=== PATIENT | male | born 1965 | race Caucasian/White ===

== ENCOUNTER 2016-07-27 18:07 | Emergency (ER) | payer BC ==
--- NOTE | 2016-07-27 18:29 | ED ---
Recheck HPI - General Source: patient, RN notes reviewed Mode of arrival: wheelchair Limitations: physical limitation <Moshe Sandhu - Last Filed: 07/27/16 18:27> <Aron Anderson - Last Filed: 07/27/16 20:42> - General Chief Complaint: Recheck/Abnormal Lab/Rx Stated Complaint: RT LEG SWELLING, CALF PAIN, R/O BLOODCLOT Time Seen by Provider: 07/27/16 18:24 - History of Present Illness Initial Comments: 50-year-old male presents emergency Department chief complaint of right leg pain , swelling. 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 Patient states first one started after having knee surgery. Patient states he last few days that he's had increased swelling and now developed pain in his calf. He states that it does feel similar to his previous DVTs. Patient states that he is currently taking multiple nose insurance: Covers it once daily instead of twice daily. He states that he has doubled up on it last couple days states has not helped. Patient denies chest pain, shortness breath. Patient denies any trauma, fever, chills or any paresthesias. (Moshe Sandhu) - Related Data Home Medications Medication Instructions Recorded Confirmed Lisinopril [Zestril] 10 mg PO DAILY 07/27/16 07/27/16 Rivaroxaban [Xarelto] 20 mg PO HS 07/27/16 07/27/16 Previous Rx's Medication Instructions Recorded Hydrocodone/Acetaminophen [Tilden 1 - 2 each PO Q4HR PRN #20 tab 07/27/16 5-325] Allergies Allergy/AdvReac Type Severity Reaction Status Date / Time No Known Allergies Allergy Verified 07/27/16 19:13 Review of Systems ROS Other: All systems not noted in ROS Statement are negative. <Moshe Sandhu - Last Filed: 07/27/16 18:27> ROS Other: All systems not noted in ROS Statement are negative. <Aron Anderson - Last Filed: 07/27/16 20:42> ROS Statement: Those systems with pertinent positive or pertinent negative responses have been documented in the HPI. Past Medical History Past Medical History: Hypertension Additional Past Medical History / Comment(s): DVT History of Any Multi-Drug Resistant Organisms: None Reported Past Surgical History: Hernia Repair Past Psychological History: No Psychological Hx Reported Smoking Status: Former smoker Past Alcohol Use History: Occasional Past Drug Use History: None Reported <ShawnaMoshe jimenez - Last Filed: 07/27/16 18:27> General Exam Limitations: physical limitation General appearance: alert, in no apparent distress Respiratory exam: Present: normal lung sounds bilaterally. Absent: respiratory distress, wheezes, rales, rhonchi, stridor Cardiovascular Exam: Present: regular rate, normal rhythm, normal heart sounds. Absent: systolic murmur, diastolic murmur, rubs, gallop, clicks Extremities exam: Present: other (Right leg there is noticeable edema noted, pedal pulses equal bilaterally +2, there is moderate tenderness with palpation to the calf no groin tenderness) Neurological exam: Present: alert, oriented X3, CN II-XII intact Skin exam: Present: warm, dry <PhoebeMoshe Venus - Last Filed: 07/27/16 18:27> Medical Decision Making <Moshe Sandhu - Last Filed: 07/27/16 18:27> <Aron Anderson - Last Filed: 07/27/16 20:42> - Medical Decision Making The patient was seen and examined. All diagnostics were reviewed. The patient had a ultrasound done of his right lower extremity. This did not show any evidence of DVT but it does show evidence of a 1.66.3 cm area in the medial left leg which is hypoechoic and consistent with a hematoma. The patient has no signs of an abscess. There is been no fever and there is no redness to the area. He has been taking Xaralto BID for the last couple of days. He is instructed to only take this medication once a day as this could be contributing to increased blood thinning and worsening of the hematoma. He does have some compression stockings and is instructed to continue with these. He has crutches at home. He states that he has significant pain with any attempts at ambulation and he is given Dilaudid 1 mg IM in the ER and will be prescribed pain medications. He has seen orthopedics in the past. It is felt as though orthopedics would not drain this hematoma but it be worthwhile to follow-up for their opinion. He understands and agrees with this plan and leaves in no distress. (Aron Adnerson) Disposition <PhoebeMoshe Venus - Last Filed: 07/27/16 18:27> Time of Disposition: 20:41 <Aron Anderson - Last Filed: 07/27/16 20:42> Clinical Impression: Hematoma, Leg pain, Leg swelling Disposition: HOME SELF-CARE Condition: Good Instructions: Hematoma (ED) Prescriptions: Hydrocodone/Acetaminophen [Tilden 5-325] 1 - 2 each PO Q4HR PRN #20 tab PRN Reason: Pain Referrals: Dashawn Perez MD [Primary Care Provider] - 07/29/16 Torres Torres DO [Doctor of Osteopathic Medicine] - 07/29/16
--- NOTE | 2016-07-27 20:20 | US ---
EXAMINATION TYPE: US venous doppler duplex LE RT DATE OF EXAM: 07/27/2016 7:34 PM COMPARISON: NONE CLINICAL HISTORY: Pain, calf swelling, hx of DVT. SIDE PERFORMED: Right TECHNIQUE: The lower extremity deep venous system is examined utilizing real time linear array sonog karen with graded compression, doppler sonography and color-flow sonography. VESSELS IMAGED: External Iliac Vein (EIV) Common Femoral Vein Deep Femoral Vein Greater Saphenous Vein * Femoral Vein Popliteal Vein Small Saphenous Vein * Proximal Calf Veins (* superficial vessels) Right Leg: Negative for DVT Hypoechoic area in right medial anterior calf. IMPRESSION: No deep venous thrombosis evident within the deep veins of the right lower extremity. At the level of the medial leg hypoechoic area is present measuring 1.6 x 6.3 cm. This may represent hem atoma, correlate to exclude abscess.
[2016-07-27] MEDS ORDERED: HYDROmorphone 1 MG/ML 1 ML SYRINGE IM STA (20:38)
[2016-07-27 21:02] VITALS: BP 124/57; PULSE 64; RESP 18; TEMP 97.3
== END 2016-07-27 21:02 | disposition home or self-care (01) ==
LOC: EC 18:07
DX: S80.11XA Contusion of right lower leg, initial encounter (principal); I10 Essential (primary) hypertension; Z87.891 Personal history of nicotine dependence; Z79.01 Long term (current) use of anticoagulants; Z79.899 Other long term (current) drug therapy; Z86.718 Personal history of other venous thrombosis and embolism; X58.XXXA Exposure to other specified factors, initial encounter
CPT/HCPCS: 93971; 99283; 96372; J1170

== ENCOUNTER → 2016-09-04 | Day surgery (SDC) | payer BC ==
[2016-09-02 09:52] VITALS: BMI 32.5
[~2016-09-04] MED LIST: LACTATED RINGERS 1,000 ML IV ONE; LACTATED RINGERS 1,000 ML IV SCH; LIDOCAINE 1% INJ 10MG/ML (20 ML MDV) ONE; PROPOFOL 10 MG/ML 20 ML VIAL IV ONE
[2016-09-04 07:07] VITALS: TEMP 97.1
--- NOTE | 2016-09-04 07:58 | P.GSHP ---
History of Present Illness H&P Date: 09/04/16 Chief Complaint: Screening colonoscopy Is a 50-year-old male referred from Dr. Perez. Patient rents today for screening colonoscopy. He denies a significant GI complaints. - Constitutional Constitutional: Reports as per HPI Past Medical History Past Medical History: Deep Vein Thrombosis (DVT), Hypertension Additional Past Medical History / Comment(s): DVT 2-3 times-1st time after knee surg., recent cold sx. History of Any Multi-Drug Resistant Organisms: None Reported Past Surgical History: Hernia Repair, Orthopedic Surgery Additional Past Surgical History / Comment(s): reconstructive right knee surg. Past Anesthesia/Blood Transfusion Reactions: No Reported Reaction Past Psychological History: No Psychological Hx Reported Smoking Status: Former smoker Past Alcohol Use History: Occasional Additional Past Alcohol Use History / Comment(s): quit smoking 25 yrs. ago, smoked 1ppd for 10 yrs. Past Drug Use History: None Reported - Past Family History Father Family Medical History: Cancer Medications and Allergies Home Medications Medication Instructions Recorded Confirmed Type Lisinopril [Zestril] 10 mg PO 2030 07/27/16 09/04/16 History Rivaroxaban [Xarelto] 20 mg PO 07/27/16 09/04/16 History Allergies Allergy/AdvReac Type Severity Reaction Status Date / Time No Known Allergies Allergy Verified 09/04/16 07:02 Surgical - Exam Vital Signs Temp Pulse Resp BP Pulse Ox 97.1 F L 87 18 125/76 95 09/04/16 07:06 09/04/16 07:06 09/04/16 07:06 09/04/16 07:06 09/04/16 07:06 - General well developed, no distress - Eyes PERRL - ENT normal pinna - Neck no masses - Respiratory normal expansion - Cardiovascular Rhythm: regular - Abdomen Abdomen: soft, non tender Assessment and Plan Plan: We'll perform screening colonoscopy.
--- NOTE | 2016-09-04 08:18 | P.OP ---
Date of Procedure: 09/04/16 Preoperative Diagnosis: Screening colonoscopy Postoperative Diagnosis: Transverse colon polyp Procedure(s) Performed: Colonoscopy Implants: Anesthesia: MAC Surgeon: Wilmer Hartley Pathology: other (Transverse colon polyp) Condition: stable Disposition: PACU Indications for Procedure: Operative Findings: Description of Procedure: Patient's placed on the endoscopy table in the lateral position. He received IV sedation. Digital rectal exam was performed which revealed a few external hemorrhoids. The flexible colonoscope was then placed patient anus and passed throughout the entire colon. The ileocecal valve was visualized. The cecum, ascending and transverse colonAppeared normal. In the proximal transverse colon there was a small pedunculated polyp and this was removed with snare. Scope was then brought back the descending and sigmoid colon and this appeared normal. Scope was withdrawn for patient.
[2016-09-04 09:06] VITALS: BP 124/84; PULSE 61; RESP 18
== END | disposition home or self-care (01) ==
LOC: ORWHC2ENDO 06:52
PROVIDERS: ATTEND Surgery
DX: Z12.11 Encounter for screening for malignant neoplasm of colon (principal); K64.4 Residual hemorrhoidal skin tags; I10 Essential (primary) hypertension; Z86.718 Personal history of other venous thrombosis and embolism; Z79.01 Long term (current) use of anticoagulants; Z87.891 Personal history of nicotine dependence
CPT/HCPCS: 88305; 45385; J2001; J2704

== ENCOUNTER 2018-08-29 14:39 | Emergency (ER) | payer BC, OTHER ==
[2018-08-29 14:43] VITALS: RESP 16; TEMP 98.2
--- NOTE | 2018-08-29 15:04 | ED ---
Lower Extremity Injury HPI - General Chief Complaint: Extremity Injury, Lower Stated Complaint: Leg pain Source: patient Mode of arrival: wheelchair Limitations: physical limitation - History of Present Illness Initial Comments: 52-year-old male presenting today for chief complaint left ankle and knee pain. Patient states he had severe sunburn after spending a day and diagnosed. She states that the pain is okay while walking but when he stops he feels it in the ankle and the knee. He states is in the area of the burn. She denies it being mostly posterior. Patient states his redness along the medial aspect of the leg from mid thigh to ankle. He states this is what he was exposed to sun. Patient denies fever chills or night sweats. Patient states he is usually on throughout though as he has had a right lower extremity DVT in the past. He states he has not been taking his are also for the past week. Patient was concerned about blood clot. Patient denies any chest pain or shortness of breath. Denies edema of the left LE. Remaining review of systems negative, upon arrival pt appears well, no acute distress, able to weight bear. - Related Data Home Medications Medication Instructions Recorded Confirmed Lisinopril [Zestril] 10 mg PO 2030 07/27/16 09/04/16 Rivaroxaban [Xarelto] 20 mg PO HS 07/27/16 09/04/16 Previous Rx's Medication Instructions Recorded Cephalexin [Keflex] 500 mg PO Q12HR 5 Days #10 cap 08/29/18 Allergies Allergy/AdvReac Type Severity Reaction Status Date / Time No Known Allergies Allergy Verified 08/29/18 14:42 Review of Systems ROS Statement: Those systems with pertinent positive or pertinent negative responses have been documented in the HPI. ROS Other: All systems not noted in ROS Statement are negative. Past Medical History Past Medical History: Deep Vein Thrombosis (DVT), Hypertension Additional Past Medical History / Comment(s): DVT 2-3 times-1st time after knee surg History of Any Multi-Drug Resistant Organisms: None Reported Past Surgical History: Hernia Repair, Orthopedic Surgery Additional Past Surgical History / Comment(s): reconstructive right knee surg. Past Anesthesia/Blood Transfusion Reactions: No Reported Reaction Past Psychological History: No Psychological Hx Reported Smoking Status: Former smoker Past Alcohol Use History: Occasional Past Drug Use History: None Reported - Past Family History Father Family Medical History: Cancer General Exam - General Exam Comments Initial Comments: General: The patient is awake and alert, in no distress, and does not appear acutely ill. Eye: Pupils are equal, round and reactive to light, extra-ocular movements are intact. No nystagmus. There is normal conjunctiva bilaterally. No signs of icterus. Ears, nose, mouth and throat: There are moist mucous membranes and no oral lesions. Neck: The neck is supple, there is no tenderness or JVD. Cardiovascular: There is a regular rate and rhythm. No murmur, rub or gallop is appreciated. Respiratory: Lungs are clear to auscultation, respirations are non-labored, breath sounds are equal. No wheezes, stridor, rales, or rhonchi. Gastrointestinal: [Soft, non-distended, non-tender abdomen without masses or organomegaly noted. There is no rebound or guarding present. No CVA tenderness. Bowel sounds are unremarkable.] Musculoskeletal: Normal ROM, no tenderness. Strength 5/5. Sensation intact. Pulses equal bilaterally 2+. Neurological: A&O x 3. CN II-XII intact, There are no obvious motor or sensory deficits. Coordination appears grossly intact. Speech is normal. Skin: Skin is warm and dry and no rashes or lesions are noted. Psychiatric: Cooperative, appropriate mood & affect, normal judgment. Limitations: physical limitation Course Vital Signs 08/29/18 14:39 Temperature 98.2 F Pulse Rate 89 Respiratory 16 Rate Blood Pressure 148/79 O2 Sat by Pulse 97 Oximetry Medical Decision Making - Medical Decision Making 52-year-old male presenting for left leg pain history of DVTs. Off xarelto for the past week. Recent travel. Patient has very distinct sunburn with well- defined borders on the legs bilaterally. There is no evidence of cellulitis extending beyond these borders. Patient denies diabetes. Ultrasound revealed no acute DVT. Patient has resumed his xarelto. Imaging studies of the knee and ankle joints reveal no acute osseous injury or effusions. I feel patient most a soft tissue swelling most likely secondary is an inflammatory change to his significant sunburn. There is no blistering of the sunburn. At this time given difficult to differentiate if there is a complicating secondary infection due to the erythema of the sunburn patient be started on Keflex 500 mg twice a day for the next 5 days and follow up closely with primary care provider. At this time there is no evidence of DVT a total patient if he has extreme was extremity swelling for continued pain he may repeat ultrasound in 2 weeks. Patient denies any chest pain or shortness of breath. At this time feel patient's pain is mostly related to the sunburn with secondary inflammatory changes causing soft tissue swelling and pain. Patient is instructed to elevate legs apply ice and apply topical Neosporin or bacitracin. Patient is agreeable care plan as well as discharge. I did discuss the case with a provider Dr. Martinez who is agreeable with care plan. Disposition Clinical Impression: Burn from the sun, Leg pain Disposition: HOME SELF-CARE Condition: Good Instructions (If sedation given, give patient instructions): Sunburn (ED) Additional Instructions: Please use medication as discussed. Please follow-up with family doctor in the next 2 days. Please return to emergency room if the symptoms increase or worsen or for any other concerns. Prescriptions: Cephalexin [Keflex] 500 mg PO Q12HR 5 Days #10 cap Is patient prescribed a controlled substance at d/c from ED?: No Referrals: Dashawn Perez MD [Primary Care Provider] - 1-2 days Time of Disposition: 16:20
--- NOTE | 2018-08-29 15:42 | US ---
EXAMINATION TYPE: US venous doppler duplex LE LT DATE OF EXAM: 08/29/2018 3:29 PM COMPARISON: NONE CLINICAL HISTORY: Left lower extremity pain. SIDE PERFORMED: Left TECHNIQUE: The lower extremity deep venous system is examined utilizing real time linear array sonog karen with graded compression, doppler sonography and color-flow sonography. VESSELS IMAGED: External Iliac Vein (EIV) Common Femoral Vein Deep Femoral Vein Greater Saphenous Vein * Femoral Vein Popliteal Vein Small Saphenous Vein * Proximal Calf Veins (* superficial vessels) Grayscale, color doppler, spectral doppler imaging performed of the deep veins of the left lower extr emity. There is normal flow, compressibility, vascular waveforms. Left Leg: Negative for DVT IMPRESSION: No sonographic evidence of deep venous arthrosis within the left lower extremity.
--- NOTE | 2018-08-29 16:03 | XR ---
EXAMINATION TYPE: XR ankle complete LT DATE OF EXAM: 08/29/2018 CLINICAL HISTORY: Left ankle pain TECHNIQUE: Frontal, lateral and oblique images of the left ankle are obtained. COMPARISON: None. FINDINGS: There is no acute fracture/dislocation evident in the left ankle. The ankle mortise appea rs within normal limits. Focal medial soft tissue swelling is seen about the ankle. Small Achilles an d plantar heel spurs are noted. IMPRESSION: Focal soft tissue swelling over the medial malleolus and deltoid ligament without acute f racture or dislocation in the left ankle.
--- NOTE | 2018-08-29 16:04 | XR ---
EXAMINATION TYPE: XR knee complete LT DATE OF EXAM: 08/29/2018 CLINICAL HISTORY: Left knee pain with no known injury TECHNIQUE: Three views of the left knee are obtained. COMPARISON: None. FINDINGS: There is no acute fracture/dislocation evident in left knee. The tri-compartment joint sp aces demonstrate joint space narrowing and marginal osteophytes, most pronounced of the medial compar tment. The overlying soft tissue appears unremarkable. IMPRESSION: There is no acute fracture or dislocation in the left knee. Moderate tricompartmental ar thropathy.
[2018-08-29 17:23] VITALS: BP 144/76; PULSE 80
== END 2018-08-29 17:17 | disposition home or self-care (01) ==
LOC: EC 14:39
DX: L55.9 Sunburn, unspecified (principal); M79.605 Pain in left leg; I10 Essential (primary) hypertension; Z86.718 Personal history of other venous thrombosis and embolism; Z87.891 Personal history of nicotine dependence; Z79.01 Long term (current) use of anticoagulants; Z79.899 Other long term (current) drug therapy
CPT/HCPCS: 99284

== ENCOUNTER → 2023-02-24 | Outpatient (CLI) | payer BC ==
--- NOTE | 2023-02-24 13:27 | XR ---
EXAMINATION TYPE: XR chest 2V DATE OF EXAM: 02/24/2023 COMPARISON: NONE HISTORY: Shortness of breath TECHNIQUE: Frontal and lateral views of the chest are obtained. FINDINGS: Scattered senescent parenchymal changes noted. Hyperinflation compatible with COPD. No evidence for infiltrate. Elevation right hemidiaphragm of uncertain chronicity. Associated parench ymal scarring or discoid atelectasis. Heart size is stable. Mediastinal structures are stable and grossly unremarkable. No evidence for hilar prominence. Degenerative changes dorsal spine. IMPRESSION: 1. Elevation right hemidiaphragm of uncertain chronicity. Associated parenchymal scarring or discoid atelectasis.
== END | disposition home or self-care (01) ==
LOC: RADXRMAIN 13:14
PROVIDERS: ATTEND Family Medicine
DX: R05.9 Cough, unspecified (principal); R06.02 Shortness of breath
CPT/HCPCS: 71046

== ENCOUNTER 2023-07-08 12:32 | Emergency (ER) | payer BC ==
--- NOTE | 2023-07-08 12:54 | ED ---
General Adult HPI - General Source: patient, RN notes reviewed Mode of arrival: ambulatory Limitations: no limitations <Rafaela Smith - Last Filed: 07/08/23 12:52> - History of Present Illness -: month(s) Location: right, lower extremity Severity scale (1-10): 0 Consistency: constant Improves with: none Worsens with: none Associated Symptoms: shortness of breath Treatments Prior to Arrival: none <Viraj Babin - Last Filed: 07/28/23 15:44> - General Chief complaint: Shortness of Breath Stated complaint: Rule out Pulmonary embolism Time Seen by Provider: 07/08/23 12:50 - History of Present Illness Initial comments: Quick Note: This is a 57-year-old male who presents to the emergency department for shortness of breath. Symptoms started 2 to 3 weeks ago. He saw his primary care provider, who requested he come to the emergency department to rule out a pulmonary embolus. 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 Denies any history of pulmonary embolism. He has noticed some right leg swelling, but denies any pain associated with this. He is on Xarelto. (Rafaela Smith) This patient here to have evaluation for right leg swelling and dyspnea. When I interviewed the patient, he states that in reality he has symptoms that have been going back for a number of months. Patient states that Dr. Vieyra recommended he be seen to have further workup. He is not actively having fever or chills. No cough. No chest pain. No hemoptysis. 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 (Viraj Babin) - Related Data Home Medications Medication Instructions Recorded Confirmed Rivaroxaban [Xarelto] 20 mg PO HS 07/27/16 09/04/16 lisinopriL [Zestril] 10 mg PO 2030 07/27/16 09/04/16 Previous Rx's Medication Instructions Recorded Cephalexin [Keflex] 500 mg PO Q12HR 5 Days #10 cap 08/29/18 Allergies Allergy/AdvReac Type Severity Reaction Status Date / Time No Known Allergies Allergy Verified 08/29/18 14:42 Review of Systems ROS Other: All systems not noted in ROS Statement are negative. <Rafaela Smith - Last Filed: 07/08/23 12:52> ROS Other: All systems not noted in ROS Statement are negative. <OlafViraj - Last Filed: 07/28/23 15:44> ROS Statement: Those systems with pertinent positive or pertinent negative responses have been documented in the HPI. Past Medical History Past Medical History: Deep Vein Thrombosis (DVT), Hypertension Additional Past Medical History / Comment(s): DVT 2-3 times-1st time after knee surg History of Any Multi-Drug Resistant Organisms: None Reported Past Surgical History: Hernia Repair, Orthopedic Surgery Additional Past Surgical History / Comment(s): reconstructive right knee surg. Past Anesthesia/Blood Transfusion Reactions: No Reported Reaction Past Psychological History: No Psychological Hx Reported Past Alcohol Use History: Occasional Past Drug Use History: None Reported - Past Family History Father Family Medical History: Cancer <BritmarkellRafaela - Last Filed: 07/08/23 12:52> General Exam Limitations: no limitations <Rafaela Smith - Last Filed: 07/08/23 12:52> Limitations: no limitations General appearance: alert, in no apparent distress Head exam: Present: atraumatic, normocephalic Eye exam: Present: normal appearance. Absent: scleral icterus, conjunctival inj ection Neck exam: Present: normal inspection Respiratory exam: Present: wheezes (Mild wheeze). Absent: rales, rhonchi, stridor, accessory muscle use, decreased breath sounds Cardiovascular Exam: Present: regular rate, normal rhythm, normal heart sounds. Absent: systolic murmur, diastolic murmur, rubs, gallop GI/Abdominal exam: Present: soft. Absent: distended, tenderness, guarding, rebound, rigid, mass Extremities exam: Present: normal inspection, full ROM, normal capillary refill, pedal edema (There is mild leg edema however no Homans' sign or palpable cord). Absent: tenderness, calf tenderness Back exam: Absent: CVA tenderness (R), CVA tenderness (L) Neurological exam: Present: alert Skin exam: Present: warm, dry, intact, normal color. Absent: rash <OlafViraj - Last Filed: 07/28/23 15:44> - General Exam Comments Initial Comments: Visual Physical Exam Vital signs reviewed General: Well-appearing, nontoxic, no acute distress. Head: Normocephalic, atraumatic Eyes: PERRLA, EOMI ENT: Airway patent Chest: Nonlabored breathing Skin: No visual rash, normal skin tone Neuro: Alert and oriented 3 Musculoskeletal: No gross abnormalities (Rafaela Smith) Course Vital Signs 07/08/23 07/08/23 12:49 17:24 Temperature 98.4 F 98.2 F Pulse Rate 86 75 Respiratory 16 18 Rate Blood Pressure 179/112 161/101 O2 Sat by Pulse 97 96 Oximetry EKG Findings - EKG Results: EKG: interpreted by ERMD, sinus rhythm (Rate 76 bpm), normal axis, normal ST/T - Blocks, [place], Hypertrophy, ST Abn: QRS axis and voltage: low voltage (<0.5 MV total QRS and <1.0 MV in each precordial lead) <Viraj Babin - Last Filed: 07/28/23 15:44> Medical Decision Making <Rafaela Smith - Last Filed: 07/08/23 12:52> - Lab Data Result diagrams: 07/08/23 12:58 07/08/23 12:58 <Viraj Babin - Last Filed: 07/28/23 15:44> - Medical Decision Making I performed the QuickNote portion of this chart. Signed Rafaela Smith PA-C. (Rafaela Smith) The patient had chest x-ray that I interpreted as negative for acute infiltrate, pneumothorax, congestive heart failure The patient had duplex Doppler of the lower extremity that I interpreted as negative for acute DVT Was pt. sent in by a medical professional or institution (JORDAN Parson, GENERAL OPHTHALMOLOGIST, urgent care, hospital, or jail...) When possible be specific @ -[No] Did you speak to anyone other than the patient for history (EMS, parent, family, police, friend...)? What history was obtained from this source @ -[No] Did you review nursing and triage notes (agree or disagree)? Why? @ -[I reviewed and agree with nursing and triage notes] Were old charts reviewed (outside hosp., previous admission, EMS record, old EKG, old radiological studies, urgent care reports/EKG's, jail records)? Report findings @ -[No old charts were reviewed] Differential Diagnosis (chest pain, altered mental status, abdominal pain women, abdominal pain men, vaginal bleeding, weakness, fever, dyspnea, syncope, headache, dizziness, GI bleed, back pain, seizure, CVA, palpatations, mental health, musculoskeletal)? @ -[not applicable] EKG interpreted by me (3pts min.). @ -[As above] X-rays interpreted by me (1pt min.). @ -[I interpreted as above CT interpreted by me (1pt min.). @ -[None done] U/S interpreted by me (1pt. min.). @ -[I interpreted as above What testing was considered but not performed or refused? (CT, X-rays, U/S, labs)? Why? @ -[None] What meds were considered but not given or refused? Why? @ -[None] Did you discuss the management of the patient with other professionals (professionals i.e. , PA, GENERAL OPHTHALMOLOGIST, lab, RT, psych nurse, social science instructor, teacher education instructor, teacher, chief diversity officer, rn case management)? Give summary @ -[No] Was smoking cessation discussed for >3mins.? @ -[No] Was critical care preformed (if so, how long)? @ -[No] Were there social determinants of health that impacted care today? How? ( Homelessness, low income, unemployed, alcoholism, drug addiction, transportation, low edu. Level, literacy, decrease access to med. care, fci, rehab)? @ -[No] Was there de-escalation of care discussed even if they declined (Discuss DNR or withdrawal of care, Hospice)? DNR status @ -[No] What co-morbidities impacted this encounter? (DM, HTN, Smoking, COPD, CAD, Cancer, CVA, ARF, Chemo, Hep., AIDS, mental health diagnosis, sleep apnea, morbid obesity)? @ -[Hypertension, factor V Leiden, previous DVT Was patient admitted / discharged? Hospital course, mention meds given and route, prescriptions, significant lab abnormalities, going to OR and other pertinent info. @ -[This patient is 57-year-old man presenting for constellation of symptoms that did include chest pains and some dyspnea. I suspect that he given his work history has some element of COPD, but recommend seeing county engineer to affirm this diagnosis. The patient not found to have evidence of acute PE or DVT. I was going to admit the patient, but he states that he does not want to stay at this point he will follow-up, returning if symptoms recur or if there is any worsening. I stressed the importance of having the hypertension addressed and also following with county engineer. Undiagnosed new problem with uncertain prognosis? @ -[No] Drug Therapy requiring intensive monitoring for toxicity (Heparin, Nitro, Insulin, Cardizem)? @ -[No] Were any procedures done? @ -[No] Diagnosis/symptom? @ -[Acute on chronic leg edema Dyspnea, resolved Acute on chronic hypertension Acute, or Chronic, or Acute on Chronic? @ -[See above Uncomplicated (without systemic symptoms) or Complicated (systemic symptoms)? @ -[Uncomplicated Side effects of treatment? @ -[No] Exacerbation, Progression, or Severe Exacerbation? @ -[No] Poses a threat to life or bodily function? How? (Chest pain, [place], AR, pneumonia, PE, COPD, DKA, ARF, appy, cholecystitis, CVA, Diverticulitis, Homicidal, Suicidal, threat to staff... and all critical care pts) @ -[No] (Viraj Babin) - Lab Data Lab Results 07/08/23 07/08/23 07/08/23 Range/Units 12:58 12:58 12:58 WBC 7.9 (3.8-10.6) k/uL RBC 5.13 (4.30-5.90) m/uL Hgb 16.3 (13.0-17.5) gm/dL Hct 47.9 (39.0-53.0) % MCV 93.3 (80.0-100.0) fL MCH 31.7 (25.0-35.0) pg MCHC 34.0 (31.0-37.0) g/dL RDW 12.6 (11.5-15.5) % Plt Count 178 (150-450) k/uL MPV 7.2 Neutrophils % 76 % Lymphocytes % 14 % Monocytes % 6 % Eosinophils % 2 % Basophils % 0 % Neutrophils # 6.0 (1.3-7.7) k/uL Lymphocytes # 1.1 (1.0-4.8) k/uL Monocytes # 0.5 (0-1.0) k/uL Eosinophils # 0.1 (0-0.7) k/uL Basophils # 0.0 (0-0.2) k/uL PT 10.7 (10.0-12.5) sec INR 1.0 (<1.2) APTT 24.9 (22.0-30.0) sec D-Dimer 0.30 (<0.60) mg/L FEU Sodium 140 (137-145) mmol/L Potassium 4.6 (3.5-5.1) mmol/L Chloride 108 H (98-107) mmol/L Carbon Dioxide 27 (22-30) mmol/L Anion Gap 5 mmol/L BUN 15 (9-20) mg/dL Creatinine 1.00 (0.66-1.25) mg/dL Est GFR (CKD-EPI)AfAm >90 (>60 ml/min/1.73 sqM) Est GFR (CKD-EPI)NonAf 83 (>60 ml/min/1.73 sqM) Glucose 93 (74-99) mg/dL Plasma Lactic Acid Azam (0.7-2.0) mmol/L Calcium 9.4 (8.4-10.2) mg/dL Magnesium 2.0 (1.6-2.3) mg/dL Total Bilirubin 0.8 (0.2-1.3) mg/dL AST 23 (17-59) U/L ALT 18 (4-49) U/L Alkaline Phosphatase 77 (38-126) U/L Troponin I (0.000-0.034) ng/mL Total Protein 7.1 (6.3-8.2) g/dL Albumin 4.4 (3.5-5.0) g/dL 07/08/23 07/08/23 Range/Units 12:58 12:58 WBC (3.8-10.6) k/uL RBC (4.30-5.90) m/uL Hgb (13.0-17.5) gm/dL Hct (39.0-53.0) % MCV (80.0-100.0) fL MCH (25.0-35.0) pg MCHC (31.0-37.0) g/dL RDW (11.5-15.5) % Plt Count (150-450) k/uL MPV Neutrophils % % Lymphocytes % % Monocytes % % Eosinophils % % Basophils % % Neutrophils # (1.3-7.7) k/uL Lymphocytes # (1.0-4.8) k/uL Monocytes # (0-1.0) k/uL Eosinophils # (0-0.7) k/uL Basophils # (0-0.2) k/uL PT (10.0-12.5) sec INR (<1.2) APTT (22.0-30.0) sec D-Dimer (<0.60) mg/L FEU Sodium (137-145) mmol/L Potassium (3.5-5.1) mmol/L Chloride (98-107) mmol/L Carbon Dioxide (22-30) mmol/L Anion Gap mmol/L BUN (9-20) mg/dL Creatinine (0.66-1.25) mg/dL Est GFR (CKD-EPI)AfAm (>60 ml/min/1.73 sqM) Est GFR (CKD-EPI)NonAf (>60 ml/min/1.73 sqM) Glucose (74-99) mg/dL Plasma Lactic Acid Azam 0.9 (0.7-2.0) mmol/L Calcium (8.4-10.2) mg/dL Magnesium (1.6-2.3) mg/dL Total Bilirubin (0.2-1.3) mg/dL AST (17-59) U/L ALT (4-49) U/L Alkaline Phosphatase (38-126) U/L Troponin I <0.012 (0.000-0.034) ng/mL Total Protein (6.3-8.2) g/dL Albumin (3.5-5.0) g/dL Disposition <Rafaela Smith - Last Filed: 07/08/23 12:52> Is patient prescribed a controlled substance at d/c from ED?: No <Viraj Babin - Last Filed: 07/28/23 15:44> Clinical Impression: Leg edema, right, Hypertension Disposition: HOME SELF-CARE Condition: Good Instructions (If sedation given, give patient instructions): Leg Edema (ED), Dyspnea (ED), Hypertension (ED) Referrals: Dontrell Vieyra DO [Primary Care Provider] - 1-2 days Axel Garcia MD [STAFF PHYSICIAN] - 1-2 days
[2023-07-08 13:17] LABS: Basophils % (A) 0 %; Eosinophils # (A) 0.1 k/uL (0-0.7); Eosinophils % (A) 2 %; HCT 47.9 % (39.0-53.0); HGB 16.3 gm/dL (13.0-17.5); Lymphocytes # (A) 1.1 k/uL (1.0-4.8); Lymphocytes % (A) 14 %; MCH 31.7 pg (25.0-35.0); MCV 93.3 fL (80.0-100.0); Mean Platelet Volume 7.2; Monocytes # (A) 0.5 k/uL (0-1.0); Monocytes % (A) 6 %; Neutrophils % (A) 76 %; Platelet Count 178 k/uL (150-450); RBC 5.13 m/uL (4.30-5.90); RDW 12.6 % (11.5-15.5); WBC 7.9 k/uL (3.8-10.6)
[2023-07-08 13:31] LABS: ALT 18 U/L (4-49); AST 23 U/L (17-59); African American GFR (CKD) >90 (>60 ml/min/1.73 sqM); Albumin 4.4 g/dL (3.5-5.0); Alkaline Phosphatase 77 U/L (38-126); Anion Gap 5 mmol/L; Blood Urea Nitrogen 15 mg/dL (9-20); Calcium 9.4 mg/dL (8.4-10.2); Carbon Dioxide 27 mmol/L (22-30); Chloride 108 mmol/L (98-107); Glucose 93 mg/dL (74-99); Non-African American GFR(CKD) 83 (>60 ml/min/1.73 sqM); Potassium 4.6 mmol/L (3.5-5.1); Sodium 140 mmol/L (137-145); Total Bilirubin 0.8 mg/dL (0.2-1.3); Total Protein 7.1 g/dL (6.3-8.2)
[2023-07-08 13:33] LABS: Partial Thromboplastin Time 24.9 sec (22.0-30.0); Prothrombin Time 10.7 sec (10.0-12.5)
--- NOTE | 2023-07-08 14:01 | XR ---
EXAMINATION TYPE: XR chest 2V DATE OF EXAM: 07/08/2023 COMPARISON: 02/24/2023 INDICATION: Difficulty breathing, short of breath TECHNIQUE: Frontal and lateral views of the chest are obtained. FINDINGS: The heart size is normal. The pulmonary vasculature is normal. The lungs are clear. There is chronic elevation of the right diaphragm. Some colonic bowel gas is un mer the right diaphragm. IMPRESSION: 1. No acute pulmonary process.
--- NOTE | 2023-07-08 15:07 | US ---
EXAMINATION TYPE: US venous doppler duplex LE RT DATE OF EXAM: 07/08/2023 12:55 PM COMPARISON: NONE CLINICAL INDICATION: Male, 57 years old with history of Swelling, hx of DVTs; SOB, h/o DVT's in the r ight, was on Xarelto but stopped it on his own 6 months ago SIDE PERFORMED: Right TECHNIQUE: The lower extremity deep venous system is examined utilizing real time linear array sonog karen with graded compression, doppler sonography and color-flow sonography. VESSELS IMAGED: Common Femoral Vein Deep Femoral Vein Greater Saphenous Vein * Femoral Vein Popliteal Vein Small Saphenous Vein * Proximal Calf Veins (* superficial vessels) Right Leg: Negative for DVT *superficial thrombus seen within varicose vein in lower hart, internal echoes that do not fully compress IMPRESSION: 1. No evidence for deep vein thrombosis. 2. Superficial thrombophlebitis in the petrous veins in the lower portion.
[2023-07-08] MEDS: lisinopriL 10 MG TAB PO STA (17:22)
[2023-07-08 17:42] VITALS: BP 161/101; PULSE 75; RESP 18; TEMP 98.2
== END 2023-07-08 17:33 | disposition home or self-care (01) ==
LOC: EC 12:32
DX: R60.0 Localized edema (principal); I10 Essential (primary) hypertension
CPT/HCPCS: 36415; 71046; 80053; 83605; 83735; 84484; 85025; 85379; 85610; 85730; 93005; 99285

== ENCOUNTER → 2023-07-21 | Outpatient (CLI) | payer BC ==
--- NOTE | 2023-07-21 13:54 | CT ---
CTA CHEST EXAMINATION TYPE: CT angio chest DATE OF EXAM: 07/21/2023 INDICATION: PE CT DLP: 717.2 mGycm, Automated exposure control for dose reduction was used. CONTRAST: Patient injected with 100 mL of Isovue 370. COMPARISON: TECHNIQUE: CT of the chest is performed on a spiral scan at 2 mm thick sections. Study is performed with intravenous contrast timed for evaluation for pulmonary embolism. This will limit additional po rtions of the evaluation. 3-D MIP images reconstructed by the technologist are reviewed on the compu ter in the coronal and sagittal planes. FINDINGS: No persistent filling defects are evident to suggest an acute pulmonary embolism. No mediastinal or hilar adenopathy enlarged by CT criteria is evident. The ascending aorta diameter at the level of the main pulmonary artery is 4.4 cm. The main pulmonary artery diameter at the bifurcation is 2.6 cm. Some atelectasis may be at the right diaphragm. Limited CT sections were through the upper abdomen. Upper abdomen appears unremarkable. IMPRESSION: 1. No acute pulmonary embolism. 2. Minimal atelectasis along the right diaphragm
== END | disposition home or self-care (01) ==
LOC: RADCTMAIN 12:50
PROVIDERS: ATTEND Internal Medicine
DX: I26.99 Other pulmonary embolism without acute cor pulmonale (principal); J98.11 Atelectasis
CPT/HCPCS: 71275; Q9967

== ENCOUNTER → 2023-12-18 | Outpatient (CLI) | payer BC ==
--- NOTE | 2023-12-18 10:26 | FL ---
EXAMINATION TYPE: FL sniff test without CXR DATE OF EXAM: 12/18/2023 COMPARISON: NONE HISTORY: Elevated diaphragm. TECHNIQUE: Fluoroscopy. FINDINGS: . A total of 35 seconds of fluoroscopic time was utilized during the procedure and 0 spot images was acquired. Total dose area product (DAP) in uGy*m?, mGy*cm? (or similar): Not provided. Fluoroscopic sniff test demonstrates normal movement of the left hemidiaphragm. The right hemidiaphragm demonstrates no significant motion upon inhalation, exhalation or significant tenderness. IMPRESSION: 1. Elevated right hemidiaphragm with no significant motion. This can be associated with phrenic nerve palsy.
--- NOTE | 2023-12-18 12:49 | CA ---
Transthoracic Echo Report Name: Daryl Murphy Age: 58 Gender: M : 1965 Exam Date: 12/18/2023 08:38 Exam Location: [facility] Ht (in): 72 Wt (lb): 260 Ordering Physician: Axel Garcia MD Attending/Referring Phys: Database Marketing Analyst Amalia Resendez RDCS Procedure CPT: Indications: I27.0 PRIMARY PULMONARY H J98.6 DISORDERS OF DIAPH Cardiac Hx: HTN, COPD, Cath Technical Quality: Fair Contrast 1: Total Dose (mL): Contrast 2: Total Dose (mL): MEASUREMENTS (Male / Female) Normal Values 2D ECHO LV Diastolic Diameter PLAX 5.8 cm 4.2 - 5.9 / 3.9 - 5.3 cm LV Systolic Diameter PLAX 3.9 cm IVS Diastolic Thickness 1.2 cm 0.6 - 1.0 / 0.6 - 0.9 cm LVPW Diastolic Thickness 1.1 cm 0.6 - 1.0 / 0.6 - 0.9 cm LV Relative Wall Thickness 0.4 RV Internal Dim ED PLAX 3.2 cm Aortic Root Diameter 4.1 cm LA Systolic Diameter LX 4.6 cm 3.0 - 4.0 / 2.7 - 3.8 cm LV Diastolic Volume MOD BP 68.3 cm??? 67 - 155 / 56 - 104 cm??? LV Systolic Volume MOD BP 31.2 cm??? 22 - 58 / 19 - 49 cm??? LV Ejection Fraction MOD BP 54.4 % >= 55 % LV Cardiac Index MOD BP 1208.7 cm???/min???m??? LV Diastolic Volume MOD 4C 69.8 cm??? LV Systolic Volume MOD 4C 24.8 cm??? LV Ejection Fraction MOD 4C 64.5 % LV Cardiac Index MOD 4C 1465.9 cm???/min???m??? LV Diastolic Length 4C 8.4 cm LV Systolic Length 4C 6.2 cm LV Diastolic Volume MOD 2C 55.8 cm??? LV Systolic Volume MOD 2C 33.2 cm??? LV Ejection Fraction MOD 2C 40.5 % LV Cardiac Index MOD 2C 736.4 cm???/min???m??? LV Diastolic Length 2C 7.0 cm LV Systolic Length 2C 6.3 cm LA Volume 44.6 cm??? 18 - 58 / 22 - 52 cm??? LA Volume Index 17.9 cm???/m??? 16 - 28 cm???/m??? M-MODE Aortic Root Diameter MM 3.4 cm LA Systolic Diameter MM 3.7 cm LA Ao Ratio MM 1.1 AV Cusp Separation MM 2.3 cm DOPPLER MV Area PHT 2.2 cm??? Mitral E Point Velocity 52.1 cm/s Mitral A Point Velocity 71.0 cm/s Mitral E to A Ratio 0.7 MV Deceleration Time 340.6 ms TR Peak Velocity 197.5 cm/s TR Peak Gradient 15.6 mmHg Right Ventricular Systolic Press 20.6 mmHg FINDINGS Left Ventricle Left ventricular ejection fraction is estimated at 50-55 %. Mildly increased septal wall thickness. Mildly decreased left ventricular ejection fraction. Left ventricular cavity size normal. Right Ventricle Normal right ventricular size and function. Right ventricular systolic pressure within normal limits. Right Atrium Mild right atrial dilatation. Left Atrium Mildly increased left atrial diameter. Mitral Valve Structurally normal mitral valve. Mild mitral regurgitation. No mitral stenosis. Aortic Valve Trileaflet aortic valve. No aortic stenosis. No aortic regurgitation. Tricuspid Valve Structurally normal tricuspid valve. No tricuspid stenosis. No tricuspid regurgitation. Pulmonic Valve No pulmonic stenosis. Trace pulmonic regurgitation. No pulmonic stenosis. Pericardium No pericardial or pleural effusion. Echo free space anterior to the right ventricle likely represents a fat pad. Aorta Mild aortic dilatation at the level of the sinuses of valsalva (root). CONCLUSIONS Normal LV size fairly well-preserved systolic function no significant abnormality on the Doppler exam. No pulmonary hypertension. No pericardial effusion. Possible fat pad Previewed by: Dr. Ed Powers MD (Electronically Signed) Final Date: 18 December 2023 12:48
== END | disposition home or self-care (01) ==
LOC: RADECHMAIN 08:26
PROVIDERS: ATTEND Internal Medicine
DX: I27.0 Primary pulmonary hypertension (principal); J98.6 Disorders of diaphragm; G58.8 Other specified mononeuropathies
CPT/HCPCS: 76000; 93306

== ENCOUNTER → 2024-08-13 | Outpatient (CLI) | payer BC ==
--- NOTE | 2024-08-13 08:41 | CT ---
EXAMINATION TYPE: CT angio chest DATE OF EXAM: 08/13/2024 8:20 AM COMPARISON: None. CLINICAL INDICATION: Male, 58 years old with history of R06.02 SHORTNESS OF BREATH, REVA, blood clot i n leg for 8 months, TECHNIQUE: Axial CT was performed with sagittal and coronal reformats. 3D reconstruction and/or MIP imaging was also performed on a separate workstation. IV CONTRAST: with IV Contrast, patient injected with 100mL mL of Isovue 370. (None if empty) CT DLP: 644.3 mGycm, Automated exposure control for dose reduction was used. FINDINGS: PULMONARY ARTERIES: The pulmonary arteries and their major tributaries are patent. I do not see apolinar dence for sizable filling defect to suggest pulmonary embolic process. LUNGS: Elevation right hemidiaphragm with right basilar parenchymal scarring. The lungs are clear and free of infiltrate. No evidence for atelectasis. No pulmonary nodule or mass is detected. No pleu ral effusion. MEDIASTINUM: Ascending thoracic aortic aneurysm measuring 4.5 cm AP dimension versus 4.4 cm previousl y. No evidence for dissection complicating factor. No evidence for mediastinal mass. No mediastinal lymph nodes greater than 1cm. HEART: Cardiomegaly is demonstrated. No significant coronary artery calcifications. HILAR STRUCTURES: No evidence for mass. No hilar lymph nodes greater than 1 cm. UPPER ABDOMEN: No significant abnormality is seen. IMPRESSION: 1. No evidence for Pulmonary embolism at this time. 2. Essentially stable ascending thoracic aortic aneurysm. 3. Chronic elevation right hemidiaphragm. [facility], , 08/13/2024 8:38 AM
== END | disposition home or self-care (01) ==
LOC: RADCTMAIN 07:45
PROVIDERS: ATTEND Family Medicine
DX: I71.21 Aneurysm of the ascending aorta, without rupture (principal); Q79.1 Other congenital malformations of diaphragm
CPT/HCPCS: 71275; Q9967

== ENCOUNTER → 2024-10-04 | Outpatient (CLI) | payer BC ==
[2024-10-04 22:29] LABS: Alternaria alternata IgE <0.10 kU/L; Aspergillus fumagatus IgE <0.10 kU/L; Birch IgE <0.10 kU/L; Cat Epith & Dander IgE <0.10 kU/L; Cladosporian herbarum IgE <0.10 kU/L; Cockroach IgE <0.10 kU/L; Dermato. farinae IgE <0.10 kU/L; Dog Dander IgE <0.10 kU/L; Elm IgE <0.10 kU/L; Maple (Box Elder) IgE <0.10 kU/L; Oak IgE <0.10 kU/L; Ragweed,Common IgE <0.10 kU/L; Red Top (Bentgrass) IgE <0.10 kU/L
== END | disposition home or self-care (01) ==
LOC: LABWHC1 13:50
PROVIDERS: ATTEND Internal Medicine
DX: J44.9 Chronic obstructive pulmonary disease, unspecified (principal); J45.50 Severe persistent asthma, uncomplicated
CPT/HCPCS: 36415; 82785; 85008; 86003